=== PATIENT | female | born 1960 | race Caucasian/White ===

== ENCOUNTER 2022-11-19 15:11 | Inpatient (IN) | payer SELFPAY ==
[~2022-11-19] VITALS: Ht 157.5 cm; Wt 72.6 kg
[2022-11-19 15:25] VITALS: BP 115/68; PULSE 77; RESP 18; TEMP 98.1; O2SAT 98
--- NOTE | 2022-11-19 15:45 | NUR ---
natividad VILLALTA transfered to bed 9
[2022-11-19 17:06] LABS: BASOPHILS % (AUTO) 0.6 % (0.0-2.0); EOSINOPHILS # (AUTO) 0.2 K/uL (0-0.4); EOSINOPHILS % (AUTO) 2.1 % (0.0-4.0); HEMATOCRIT 34.7 % (36-48); HEMOGLOBIN 11.2 g/dL (12.0-16.0); LYMPHOCYTES # (AUTO) 2.3 K/uL (2.5-16.5); LYMPHOCYTES % (AUTO) 27.5 % (20.5-51.1); MEAN CORPUSCULAR HEMOGLOBIN 26 pg (27-31); MEAN CORPUSCULAR HGB CONC 32 g/dL (33-37); MEAN CORPUSCULAR VOLUME 79.5 fL (80-94); MONOCYTES # (AUTO) 0.7 K/uL (0.8-1.0); MONOCYTES % (AUTO) 8.1 % (1.7-9.3); NEUTROPHILS # (AUTO) 5.1 K/uL (1.8-7.7); NEUTROPHILS % (AUTO) 61.7 % (42.2-75.2); PLATELET COUNT (AUTO) 209 K/uL (140-450); RED BLOOD CELL COUNT(AUTO) 4.37 MIL/uL (4.20-5.40); RED CELL DISTRIBUTION WIDTH 19.9 % (11.6-13.7); WHITE BLOOD COUNT (AUTO) 8.2 K/uL (4.8-10.8)
[2022-11-19 17:16] LABS: ALBUMIN 2.7 g/dL (3.4-5.0); ANION GAP 10.2 (8-16); CARBON DIOXIDE 29.8 mmol/L (21-32); CREATININE 0.7 mg/dL (0.6-1.3); TOTAL BILIRUBIN 0.2 mg/dL (0.0-1.0)
[2022-11-19 17:23] LABS: PROTHROMBIN TIME 11.9 secs (10.8-13.4)
[2022-11-19] MEDS ORDERED: PANTOPRAZOLE 40 MG INJ VIAL IVP ONE (17:30)
--- NOTE | 2022-11-19 18:45 | NUR ---
pt medicated per MD orders. rogelio
[2022-11-19] MEDS ORDERED: PANTOPRAZOLE 40 MG INJ VIAL ONE (18:51)
[2022-11-19] MEDS ORDERED: TEMAZEPAM 15 MG CAP PO PRN (18:55)
[2022-11-19] MEDS ORDERED: ONDANSETRON 4 MG/2 ML VIAL IVP PRN (18:55)
[2022-11-19] MEDS ORDERED: HYDROcodone/APAP 5/325 MG 1 TAB TAB PO PRN (18:55)
[2022-11-19] MEDS: MORPHINE SULFATE 2 MG/ML SYR IVP PRN (20:39)
--- NOTE | 2022-11-19 20:45 | NUR ---
provided pericare for patient, and d/c hsu catheter- 10ml syringe taken out, tip intact, and pt tolerated well. discarded hsu catheter bag per procedure.
--- NOTE | 2022-11-19 20:50 | NUR ---
# 16 FR Chaparro catheter with 10 ml utilizing sterile technique. Immediate return of 15 ml yellow, hazy, and sedimented urine noted. Bedside drainage bag placed below level of bladder. Urine sample collected and sent to lab. Pt tolerated procedure well.
--- NOTE | 2022-11-19 21:00 | NUR ---
Patient will be admitted to care of Darío SUN. Admited to Telemetry. Will go to room 122B. Belongings list completed. Report to Merissa MACEDO.
[2022-11-19 21:15] VITALS: PULSE 71; RESP 18; O2SAT 93
--- NOTE | 2022-11-19 21:15 | NUR ---
ADMITTED A 62 Y/O FEMALE FROM ER AWAKE ALERT ORIENTED X3. NO ACUTE DISTRESS ON ROOM AIR. IV ACCESS TO LEFT FOREARM SALINE LOCK. G-TUBE INTACT. MORTON CATHETER IN PLACE DRAINING TO GRAVITY TO A CLEAR URINE OUTPUT. NO COMPLAINTS OF PAIN. CALL LIGHT WITHIN REACH. SAFETY PRECAUTIONS ARE IN PLACE. PATIENT WITH EXCORIATION AND REDNESS TO CASIMIRO AREA.
[2022-11-19] MEDS ORDERED: METF-1139 PO (21:41)
[2022-11-19] MEDS ORDERED: ATOR10TA PO (21:41)
[2022-11-19] MEDS ORDERED: LEVO13CA2 PO (21:41)
[2022-11-19] MEDS ORDERED: LISI2.5T12 PO (21:41)
[2022-11-19 21:43] VITALS: PULSE 76
[2022-11-19] MEDS: PANTOPRAZOLE 40 MG INJ VIAL IVP SCH (21:45)
--- NOTE | 2022-11-19 21:45 | NUR ---
DUE MEDICATION GIVEN ORDERED.
[2022-11-19] MEDS ORDERED: ACET-2619 PO (22:59)
[2022-11-19] MEDS ORDERED: FERR75LI22 GT (22:59)
[2022-11-19] MEDS ORDERED: HYDR-5080 PO (22:59)
[2022-11-19] MEDS ORDERED: SERT25TA PO (22:59)
[2022-11-19] MEDS ORDERED: PHEN100C3 PO (22:59)
[2022-11-19] MEDS ORDERED: LOPE-143 PO (22:59)
[2022-11-19] MEDS ORDERED: CLON0.2T16 PO (22:59)
[2022-11-19] MEDS ORDERED: PRO5 PO (22:59)
[2022-11-19] MEDS ORDERED: BACL10TA4 PO (22:59)
[2022-11-20] VITALS: BP 119/73; PULSE 78; PULSE 81; RESP 18; TEMP 97.6; O2SAT 94
[2022-11-20 04:00] VITALS: BP 113/73; PULSE 79; PULSE 83; RESP 18; TEMP 96.7; O2SAT 91
[2022-11-20] MEDS ORDERED: Z-GUARD PASTE TP ONE (05:14)
[2022-11-20] MEDS ORDERED: Z-GUARD PASTE TP PRN (05:15)
[2022-11-20] MEDS ORDERED: DEXTROSE 50% 50 ML SYR IVP PRN (06:50)
--- NOTE | 2022-11-20 07:31 | NUR ---
GAVE BEDSIDE REPORT TO NURSE BARTLETT FOR CONTINUITY OF CARE. NO RECTAL BLEEDING NOTED DURING THE SHIFT.
[2022-11-20 08:00] VITALS: BP 115/72; PULSE 71; PULSE 81; PULSE 84; RESP 18; TEMP 96.9; O2SAT 93; O2SAT 95
[2022-11-20] MEDS: BLOOD GLUCOSE MONITORING 1 DEV DEV FS SCH ×4 (08:18→21:03)
--- NOTE | 2022-11-20 08:39 | NUR ---
PATIENT HAS BEEN SCREENED AND CATEGORIZED HIGH NUTRITION RISK. PATIENT WILL BE SEEN WITHIN 1-2 DAYS OF ADMISSION. 11/20/22-11/21/22 [facility] REFERRAL RECEIVED FOR PATIENT FOR TUBE FEEDING RECOMMENDATION ON 11/20/22. [address] Addendum: 11/20/22 at [address] [facility] REFERRAL RECEIVED FOR PATIENT FOR WOUND ON 11/20/[address]
[2022-11-20] MEDS: PANTOPRAZOLE 40 MG INJ VIAL IVP SCH ×2 (11:03→20:44)
[2022-11-20 12:00] VITALS: BP 108/69; PULSE 82; RESP 18; TEMP 98; O2SAT 95
[2022-11-20 12:08] LABS: BASOPHILS % (AUTO) 0.4 % (0.0-2.0); EOSINOPHILS # (AUTO) 0.1 K/uL (0-0.4); EOSINOPHILS % (AUTO) 2.3 % (0.0-4.0); HEMATOCRIT 39.1 % (36-48); HEMOGLOBIN 12.2 g/dL (12.0-16.0); LYMPHOCYTES # (AUTO) 1.3 K/uL (2.5-16.5); MEAN CORPUSCULAR HEMOGLOBIN 25 pg (27-31); MEAN CORPUSCULAR HGB CONC 31 g/dL (33-37); MEAN CORPUSCULAR VOLUME 80.2 fL (80-94); MONOCYTES # (AUTO) 0.4 K/uL (0.8-1.0); MONOCYTES % (AUTO) 7.7 % (1.7-9.3); NEUTROPHILS # (AUTO) 3.4 K/uL (1.8-7.7); NEUTROPHILS % (AUTO) 64.6 % (42.2-75.2); PLATELET COUNT (AUTO) 191 K/uL (140-450); RED BLOOD CELL COUNT(AUTO) 4.87 MIL/uL (4.20-5.40); RED CELL DISTRIBUTION WIDTH 20.1 % (11.6-13.7); WHITE BLOOD COUNT (AUTO) 5.2 K/uL (4.8-10.8)
--- NOTE | 2022-11-20 12:11 | NUR ---
Employment Attorney FORMING TUBE SELECTOR called and spoke to Rn. Katya chavez a discharge planning assessment.
[2022-11-20 12:19] LABS: ALBUMIN 2.7 g/dL (3.4-5.0); CARBON DIOXIDE 29.1 mmol/L (21-32); CREATININE 0.9 mg/dL (0.6-1.3); POTASSIUM 4.1 mmol/L (3.5-5.1); TOTAL BILIRUBIN 0.2 mg/dL (0.0-1.0)
--- NOTE | 2022-11-20 13:24 | NUR ---
11/20/22 RD INITIAL ASSESSMENT COMPLETED PLEASE REFER TO NUTRITION ASSESSMENT UNDER CARE ACTIVITY FOR ESTIMATED NUTRITIONAL NEEDS. 1. CONTINUE CLEAR LIQUID DIET TOLERATED AND ONCE MEDICALLY APPROPRIATE ADVANCE TO FULL LIQUID DIET 2. RD RECOMMENDS PROSOURCE BID FOR WOUNDS WHICH PROVIDES 180 CALORIES AND 30 GRAMS OF PROTEIN. 3. IF TUBE FEEDING IS NEEDED RD RECOMMENDS STARTING ON NEPRO @20ML/HR AND INCREASE BY 20ML Q4H TO GOAL RATE OF 35ML/HR OR TOLERATED WITH FWF OF 150 Q4H OR PER MD. THIS WILL PROVIDE 1,512 CALORIES AND 68 GRAMS OF PROTEIN, MEETING AT LEAST 75% OF ESTIMATED NUTRITIONAL NEEDS. 4. RD TO FOLLOW-UP 2-3 DAYS, HIGH RISK GEORGE BREWER RD
--- NOTE | 2022-11-20 13:35 | NUR ---
DC [age] YRS OLD FEMALE PATIENT WAS ADMITTED FROM [facility] WITH A DX OF GI BLEED. PATIENT HAS A HX OF GERD, HTN, COPD ,CKD AND DM. ADMINISTERED IVF, IV KEPPRA. CONSULTED WITH GI DR MILLER. DC PLAN TO RETURN TO [facility] WHEN STABLE. CM TO FOLLOW Addendum: 11/21/22 at 1423 by KYLER BOYLE CM RECEIVED ORDER FOR PATIENT TO GO BACK TO [facility]. FAXED ALL PAPERWORK TO [facility]. SPOKE WITH BRADLEY AT [facility] LOCATED AT [address] [facility] [id number]. PATIENT WILL BE GOING TO ROOM 116B UNDER DR CARR. TRANSPORTATION ARRANGED WITH [employer] FOR A [id number] [employer] APPROVED BY [employer]. NURSE MOYER AND MICHAELN CARMEN AWARE OF THE ABOVE INFORMATION.
[2022-11-20] MEDS: Z-GUARD PASTE TP SCH (13:37)
[2022-11-20 16:00] VITALS: BP 112/67; PULSE 83; PULSE 85; RESP 18; TEMP 97.6; O2SAT 96
--- NOTE | 2022-11-20 18:30 | NUR ---
DR ALFONSO AT BEDSIDE.
--- NOTE | 2022-11-20 19:10 | NUR ---
ENDORSED PT TO SUPERVISOR REMELT NURSE FOR CONTINUITY OF CARE. ALL NEEDS MET THROUGHOUT SHIFT. PT IS STABLE.
[2022-11-20 20:00] VITALS: BP 120/60; PULSE 106; PULSE 75; PULSE 78; RESP 18; TEMP 98.3; O2SAT 93; O2SAT 94
[2022-11-20] MEDS: MORPHINE SULFATE 2 MG/ML SYR IVP PRN (20:40)
[2022-11-20] MEDS: levETIRAcetam 500 MG in NACL 0.9% 100 ML IV SCH (20:45)
[2022-11-20] MEDS: INSULIN LISPRO SLIDING SCALE 100 UNITS/ML VIAL SUBQ PRN (21:06)
--- NOTE | 2022-11-20 22:32 | NUR ---
still waiting for feeding formula from housekeeping and laundry team leader
--- NOTE | 2022-11-20 23:58 | NUR ---
STILL WAITING FEEDING FORMULA FROM AUTOMATIC CLIPPER
[2022-11-21] VITALS: BP 111/62; PULSE 75; PULSE 99; RESP 18; TEMP 98.1; O2SAT 95
--- NOTE | 2022-11-21 00:05 | NUR ---
G TUBE FEEDING STARTED AT 10 CC/HR , WILL INCREASE THE RATE ACCORDING TO TOLERANCE , WILL CONT. TO MONITOR
--- NOTE | 2022-11-21 02:00 | NUR ---
FEEDING RESIDUAL 10 CC - WILL INCREASE THE RATE UNTIL REACH THE GOAL OF 40CC / HR - WILL CONT. TO MONITOR
[2022-11-21 04:00] VITALS: BP 116/63; PULSE 76; PULSE 89; RESP 18; TEMP 98.3; O2SAT 96
--- NOTE | 2022-11-21 04:00 | NUR ---
ROUNDS , NO S/SX OF ACUTE DISTRESS NOTED .
[2022-11-21] MEDS: Z-GUARD PASTE TP SCH ×2 (05:03→13:00)
[2022-11-21] MEDS: BLOOD GLUCOSE MONITORING 1 DEV DEV FS SCH ×2 (06:00→11:48)
--- NOTE | 2022-11-21 06:00 | NUR ---
PT CAN'T ABLE TO SIGN FOR DISCLOSURE OF RECORD SO THAT I MAY FAX THE REQUEST TO [facility] BUT PT CAN'T DUE TO TOO SLEEPY AND HAS TROUBLE OF HANDWRITING . WILL CALL FAMILY TO GET CONSENT FOE DISCLOSURE OF RECORD .
[2022-11-21] MEDS: INSULIN LISPRO SLIDING SCALE 100 UNITS/ML VIAL SUBQ PRN ×2 (06:15→11:50)
--- NOTE | 2022-11-21 06:35 | NUR ---
PER PT'S DAUGHTER LET THE PT. SIGN THE CONSENT . SHE DON'T WANT TO INTERVENE ABOUT THAT MATTER . - WILL ENDORSE .
--- NOTE | 2022-11-21 07:25 | NUR ---
RECEIVED REPORT FROM DINING CAR WAITER/WAITRESS NURSE FOR CONTINUITY OF CARE. PT IS ASLEEP AT THIS TIME, CHEST RISE AND FALL NOTED, RESPIRATIONS EVEN AND UNLABORED. FLACC SCORE OF 0. IV SITE LOCATED AT LEFT HAND 20 GAUGE. INFUSING WELL. G-TUBE PRESENT RUNNING GLUCERNA AT 40CC. CALL LIGHT WITHIN REACH, SAFETY MEASURES IN PLACE. WILL MAKE FREQUENT ROUNDS THROUGHOUT SHIFT.
--- NOTE | 2022-11-21 07:42 | NUR ---
ENDORSED PT FOR CONT. OF CARE . PT AWAKE .
[2022-11-21 08:00] VITALS: BP 116/69; PULSE 78; PULSE 79; PULSE 97; RESP 18; RESP 20; TEMP 96.1; O2SAT 96; O2SAT 98
--- NOTE | 2022-11-21 08:00 | NUR ---
Patient's Plan of Care was discussed and reviewed with SARAH: Daniele
--- NOTE | 2022-11-21 09:09 | NUR ---
WOUND CARE NOTE: PT. ADMITTED FROM SNF WITH MASD TO PERINEAL AND BUTTOCK, SKIN MOIST, RED AND INTACT. GT SITE CASIMIRO-STOMA SKIN MASD SKIN RED, MOIST INTACT. PT. WITH LOW GAGE SCALE AT MODERATE TO HIGH RISK, CONTINUE TO FOLLOW PRESSURE INJURY PREVENTION INTERVENTIONS. POC DISCUSSED WITH PRIMARY RN JOÃO. - CASIMIRO CARE Q2H AND PRN IF SOILING, APPLY ANTIFUNGAL CREAM BID AND PRN IF SOILING AND KILN LABOURER -GT-SITE PER-STOMA SKIN CLEANSE WITH NS, PAT DRY, APPLY ANTIFUNGAL CREAM BID AND COVER WITH SPLIT GAUZES -POSITIONING: TURN AND REPOSITION PATIENT Q 2H OR SOONER USE PILLOWS TO KEEP BONY PROMINENCES FROM DIRECT CONTACT WITH SURFACES USE REPOSITIONING WEDGES TO PROVIDE 30-DEGREE ANGLE FOR SIDE LYING POSITIONS OFFLOADING OR FOAM DRESSING TO ALL TUBING TO PREVENT MEDICAL DEVICES RELATED PRESSURE INJURY -RE-EVALUATING AND MANAGING INCONTINENCE MONITOR SKIN CONDITION DURING POSITION CHANGE DO NOT MASSAGE REDNESS, BONY PROMINENCES FREQUENT CASIMIRO-CARE AND PROVIDE BARRIER CREAMS PRN IF SOILING MOISTURE CONTROL BY ABSORBENT PAD TO WICK AND HOLD MOISTURE KEEP SKIN DRY AND PROTECT FROM FRICTION -MANAGE FRICTION/SHEAR/MOBILITY KEEP HOB AT THE LOWEST LEVEL OF ELEVATION NO MORE THAN 30 DEGREE UNLESS OTHERWISE CONTRAINDICATED USE LIFT SHEET OR TRANSFER DEVICE TO MOVE PATIENT AND PREVENT LATERAL SHEER. PROTECT HEELS, ELBOWS BONY PROMINENCES WITH SKIN BERRIES OR FOAM DRESSING IF EXPOSED TO FRICTION OFFLOAD BILATERAL HEELS BY PLACING PILLOWS UNDER CALVES AT ALL TIMES, UNLESS OTHERWISE CONTRAINDICATED -PRESSURE REDISTRIBUTION SURFACE THERAPY GISELA ISOFLEX MATTRESS -NUTRITION: PLEASE FOLLOW RD RECOMMENDATIONS AND OFFER NUTRITION SUPPLEMENTS IF ORDERED. PLEASE CONTACT WOUND CARE NURSE FOR ANY QUESTION AND CHANGE OF WOUND CONDITION.
[2022-11-21] MEDS: PANTOPRAZOLE 40 MG INJ VIAL IVP SCH (10:23)
[2022-11-21] MEDS: levETIRAcetam 500 MG in NACL 0.9% 100 ML IV SCH (10:23)
[2022-11-21] MEDS ORDERED: FERR-252 PO (10:54)
[2022-11-21] MEDS ORDERED: ASCO500T95 PO (10:54)
[2022-11-21] MEDS ORDERED: OMEP40EC23 PO (10:54)
[2022-11-21 12:00] VITALS: BP 137/82; PULSE 92; PULSE 98; RESP 18; TEMP 97.9; O2SAT 97
[2022-11-21] MEDS: ANTIFUNGAL CLEAR OINTMENT TP SCH (13:00)
--- NOTE | 2022-11-21 13:00 | NUR ---
ASSISTED STRUCTURAL STEEL ERECTION SUPERVISOR WITH CLEANING AND CHANGING THE PATIENT. Z GUARD APPLIED TO AFFECTED AREAS PER WOUND CARE NURSE'S ORDERS.
[2022-11-21 15:36] VITALS: BP 137/82; PULSE 92; RESP 18; TEMP 97.9
--- NOTE | 2022-11-21 19:49 | NUR ---
PT DISCHARGED TO [facility] @ 1600
== END 2022-11-21 16:25 | DRG 377 ==
LOC: MED 15:11 → MTU 19:01
PROVIDERS: ADMIT Student in an Organized Health Care Education/Training Program; ATTEND Student in an Organized Health Care Education/Training Program
DX: K62.5 Hemorrhage of anus and rectum (principal); E43 Unspecified severe protein-calorie malnutrition; I69.354 Hemiplegia and hemiparesis following cerebral infarction affecting left non-dominant side; R47.01 Aphasia; J44.9 Chronic obstructive pulmonary disease, unspecified; G40.909 Epilepsy, unspecified, not intractable, without status epilepticus; D64.9 Anemia, unspecified; I12.9 Hypertensive chronic kidney disease with stage 1 through stage 4 chronic kidney disease, or unspecified chronic kidney disease; E11.22 Type 2 diabetes mellitus with diabetic chronic kidney disease; N18.9 Chronic kidney disease, unspecified; E86.0 Dehydration; R13.10 Dysphagia, unspecified; K21.9 Gastro-esophageal reflux disease without esophagitis; Z90.710 Acquired absence of both cervix and uterus; Z93.1 Gastrostomy status; Z68.29 Body mass index [BMI] 29.0-29.9, adult
CPT/HCPCS: 36415; 80053; 82728; 82948; 83540; 85025; 85610; 85730; 86886; 86900; 86901; 87081; 96374; 99285; C9113; J1953; J2270